=== PATIENT | male | born 2000 | race Caucasian/White ===

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

== ENCOUNTER 2021-04-17 14:05 | Outpatient (REF) | payer MEDICAID, SELFPAY ==
[2021-04-17 14:26] LABS: COVID-19 Test Negative (Negative); IDNOW Serial# 55D5AD1C
== END 2021-04-17 14:06 | disposition home or self-care (01) ==
LOC: HO.LAB 14:05
PROVIDERS: Visit Provider Internal Medicine
DX: Z20.822 Contact with and (suspected) exposure to COVID-19 (principal)
CPT/HCPCS: 36415; 87635; C9803

== ENCOUNTER 2021-11-15 10:33 | Outpatient (REF) | payer MEDICAID, SELFPAY ==
[2021-11-15 11:23] LABS: Binax Internal Control QC Valid; Binax Lot number: 9864; Binax Now Covid-19 Ag Negative (Negative)
== END 2021-11-15 10:34 | disposition home or self-care (01) ==
LOC: HO.LAB 10:33
PROVIDERS: Visit Provider Internal Medicine
DX: Z20.822 Contact with and (suspected) exposure to COVID-19 (principal)
CPT/HCPCS: 36415; C9803

== ENCOUNTER 2023-12-07 10:16 | Emergency (ER) | payer MEDICAID, SELFPAY ==
[2023-12-07 10:21] VITALS: BP 132/85; PULSE 89; RESP 18; TEMP 37.7; O2SAT 99; BMI 22.3
[2023-12-07 10:39] LABS: Basophils Absolute Auto 0.1 X10*3/uL (0.0-0.2); Basophils Percent Auto 0.3 % (0-2); Hematocrit 44.4 % (42.0-52.0); Hemoglobin 15.4 g/dl (14.0-18.0); Imm Gran Pct Auto 0.6 % (0.0-0.4); Lymphocytes Absolute Auto 1.1 X10*3/uL (1.2-4.9); Lymphocytes Percent Auto 6.2 % (20-40); MANUAL DIFF FLAG SCAN; Mean Corpuscular HGB Conc 34.7 g/dl (31.0-36.0); Mean Corpuscular Hemoglobin 31.2 pg (27.0-33.0); Mean Corpuscular Volume 89.9 fL (80.0-98.0); Mean Platelet Volume 10.2 fL (9.4-12.4); Monocytes Absolute Auto 1.8 X10*3/uL (0.1-1.2); Monocytes Percent Auto 10.1 % (2-11); Neutrophils Percent Auto 82.8 % (45-73); Platelet Count 320 X10*3/uL (160-400); Red Blood Count 4.94 X10*6/uL (4.60-5.80); SCAN SMEAR FLAG 1
[2023-12-07 10:50] LABS: IDNOW Serial# 08D9AD1C; Strep A Nucleic Acid Negative (Negative)
[2023-12-07 10:55] LABS: Alanine Aminotransferase 14 U/L (0-40); Albumin Level 4.6 g/dL (3.5-5.0); Alkaline Phosphatase 70 U/L (39-117); Anion Gap 16 (12-20); Aspartate Amino Transferase 18 U/L (5-37); Bilirubin Direct 0.3 mg/dL (0.0-0.5); Bilirubin Total 0.6 mg/dL (0.0-1.0); Blood Urea Nitrogen 17 mg/dL (9-16); Calcium 9.9 mg/dL (8.4-10.2); Carbon Dioxide 25 mmol/L (22-29); Chloride 103 mmol/L (96-108); Creatinine Clr Calc Pharmacy 105.2; Estimated Glomerular Filt Rate > 60; Glucose Random 121 mg/dL (60-115); Lipase 8 U/L (8-78); Potassium 4.2 mmol/L (3.3-5.1); Sodium 140 mmol/L (135-145); Total Protein 8.6 g/dL (6.5-8.0)
[2023-12-07 10:58] LABS: COVID-19 Test Negative (Negative); IDNOW Serial# 152EDE1D
[2023-12-07 11:09] LABS: SLIDE REVIEW VERIFIED
[2023-12-07 11:11] LABS: IDNOW Serial# 9DB6401D; Influenza A Negative (Negative); Influenza B2 Negative (Negative)
--- NOTE | 2023-12-07 13:47 | ED.GENADULT ---
HPI - General Adult General Chief complaint: Nausea/Vomiting/Diarrhea Stated complaint: Fever/Vomiting/Weakness Time Seen by Provider: 12/07/23 13:42 Source: patient Mode of arrival: ambulatory Limitations: no limitations History of Present Illness HPI narrative: patient with fever for 5 days, states that he is having shaking chills that is not getting any better. Onset (ago): day(s) Relieving factors: none Related Data Previous Rx's Medication Instructions Recorded amoxicillin 875 mg-potassium 1 tab PO BID 9 days #18 tabs 12/07/23 clavulanate 125 mg tablet ondansetron 4 mg disintegrating 4 mg PO Q8H PRN nausea and 12/07/23 tablet vomiting #20 tabs Allergies Allergy/AdvReac Type Severity Reaction Status Date / Time No Known Allergies Allergy Verified 12/07/23 10:20 Review of Systems Review of Systems: Yes all other systems are reviewed and are negative Neurologic: Denies Sensory deficit (Neuro) PMFSH Social History Social History Smoked in Last 30 Days: No Use of substances other than those prescribed or required for medical reasons: No Advance Directives: No Advance Directives Information Provided: Yes Physical Exam ED Vital Signs: Vital Signs - 24 hr 12/07/23 10:21 12/07/23 14:00 12/07/23 15:40 Temperature 99.8 F 100.8 F H 99.5 F Pulse Rate 89 79 73 Respiratory Rate 18 18 18 Blood Pressure 132/85 137/85 121/75 Pulse Oximetry 99 100 97 Oxygen Delivery Method Room Air Room Air Room Air 12/07/23 16:09 Temperature 98.3 F Pulse Rate 68 Respiratory Rate 16 Blood Pressure 117/67 Pulse Oximetry 97 Oxygen Delivery Method Room Air BMI result Body Mass Index 22.3 Const General: healthy appearing Nutritional Appearance: average body habitus Orientation/consciousness: oriented to person and patient oriented x3 Limitations: no limitations HENMT Other: pharynx with diffuse exudates and redness and cervical lymphadenopathy Head: Yes normal to inspection Ears: external ears normal General nose exam: Normal external nose present Throat: Yes posterior oropharynx normal Eyes General: appearance normal, both eyes and all related structures Neck Neck: Yes normal visual inspection Chest Chest palpation & inspection: normal inspection of the chest Resp Auscultation: clear to auscultation bilaterally Cardio Jugular venous distension: no JVD Rate: regular rate Rhythm: regular rhythm Heart sounds: S1 normal heart sound present and S2 normal heart sound present GI Inspection: Yes normal to inspection Palpation (GI): Soft to palpation, nontender and No hepatosplenomegaly present Auscultation: normal bowel sounds General: Yes no CVA tenderness Back/Spine/Pelvis Back: no CVA tenderness Skin General skin exam: no rashes or lesions noted Neuro General: oriented to person and patient oriented x3 Cranial nerves: Yes CN's II-XII intact bilaterally Motor exam (neuro): 5/5 motor strength present throughout Sensory Exam: No Sensory deficit (Neuro) Extrem General: Yes normal to inspection Psych Appearance: grossly normal Course Reevaluation(s) Reevaluation #1: strep and viral panel negative, waiting on monotest Time: 15:40 Reevaluation #2: mono negative no signs of [employer] has normal range of motion, uvula is midline will dose with ceftriaxone and DC home, no stridor no drooling Medications Administered Discontinued Medications Generic Name Dose Route Start Last Admin Trade Name Zandra PRN Reason Stop Dose Admin Dexamethasone Sodium Phosphate 10 mg 12/07/23 13:49 12/07/23 14:02 Dexamethasone Sod Phosphate 10 Mg/Ml Vial IVPUSH 12/07/23 13:50 10 mg ONCE ONE Administration Sodium Chloride 500 mls @ 999 mls/hr 12/07/23 14:00 12/07/23 15:39 Ns IV 12/07/23 14:30 Infused .Q31M [facility] Infusion Ketorolac Tromethamine 30 mg 12/07/23 13:49 12/07/23 14:02 Ketorolac Tromethamine 30 Mg/Ml Vial IVPUSH 12/07/23 13:50 30 mg ONCE ONE Administration Medical Decision Making Differential Diagnosis Differential Diagnoses: The differential diagnosis associated with the presentation includes (exudative pharyngitis, mono, covid, influenza, rsv, leukocytoisis were all considered) Lab Data MDM Lab Attestation statement: I reviewed the patient's lab results. (leukocytosis noted) 12/07/23 10:31 12/07/23 10:31 Labs: Lab Results 12/07/23 12/07/23 Range/Units 10:31 13:54 WBC 18.0 H (4.8-10.8) X10*3/uL RBC 4.94 (4.60-5.80) X10*6/uL Hgb 15.4 (14.0-18.0) g/dl Hct 44.4 (42.0-52.0) % MCV 89.9 (80.0-98.0) fL MCH 31.2 (27.0-33.0) pg MCHC 34.7 (31.0-36.0) g/dl RDW 13.0 (11.0-16.0) % Plt Count 320 (160-400) X10*3/uL MPV 10.2 (9.4-12.4) fL Immature Gran % (Auto) 0.6 H (0.0-0.4) % Neut % (Auto) 82.8 H (45-73) % Lymph % (Auto) 6.2 L (20-40) % [place] % (Auto) 10.1 (2-11) % Eos % (Auto) 0.0 (0-4) % Baso % (Auto) 0.3 (0-2) % Lymph # (Auto) 1.1 L (1.2-4.9) X10*3/uL [place] # (Auto) 1.8 H (0.1-1.2) X10*3/uL Eos # (Auto) 0.0 (0.0-0.4) X10*3/uL Baso # (Auto) 0.1 (0.0-0.2) X10*3/uL Abs Immat Gran (auto) 0.10 H (0.00-0.03) X10*3/uL Absolute Neuts (auto) 15.0 H (2.0-8.3) x10*3/uL Absolute Nucleated RBC 0.000 (0.0-0.012) X10*3/uL Nucleated RBC % (auto) 0.0 (0.0-0.2) /100WBC Smear Tech's Comments VERIFIED Sodium 140 (135-145) mmol/L Potassium 4.2 (3.3-5.1) mmol/L Chloride 103 (96-108) mmol/L Carbon Dioxide 25 (22-29) mmol/L Anion Gap 16 (12-20) BUN 17 H (9-16) mg/dL Creatinine 1.13 (0.5-1.4) mg/dL Estim Creat Clear Calc 105.2 Estimated GFR > 60 Random Glucose 121 H (60-115) mg/dL Calcium 9.9 (8.4-10.2) mg/dL Total Bilirubin 0.6 (0.0-1.0) mg/dL Direct Bilirubin 0.3 (0.0-0.5) mg/dL AST 18 (5-37) U/L ALT 14 (0-40) U/L Alkaline Phosphatase 70 (39-117) U/L Total Protein 8.6 H (6.5-8.0) g/dL Albumin 4.6 (3.5-5.0) g/dL Lipase 8 (8-78) U/L COVID-19 (TIFFANY) Negative (Negative) COVID-19 Clin Com See Note Monoscreen Negative (Negative) Influenza Type A (KATIE) Negative (Negative) Influenza Type B (KATIE) Negative (Negative) Influenza A & B Note See Note S. pyogenes GrpA KATIE Negative (Negative) Tests considered The following testing was considered but not selected: CXR: patient with diffuse tonsillar exudate did not obtain xray Discharge Plan Discharge Clinical Impression: Pharyngitis Qualifiers: Pharyngitis/tonsillitis etiology: unspecified etiology Qualified Code(s): J02.9 - Acute pharyngitis, unspecified Patient Disposition: Home, Self-Care Instructions: Pharyngitis (ED) Additional Instructions: start antibiotic in the morning you were given IV dose in the ED. return for worsening swelling, pain, unable to swallow, difficulty moving neck or any other concerns. you must finish the entire course of antibiotics. Prescriptions: New ondansetron 4 mg tablet,disintegrating 4 mg PO Q8H PRN (Reason: nausea and vomiting) Qty: 20 0RF amoxicillin-pot clavulanate 875-125 mg tablet 1 tab PO BID 9 Days Qty: 18 0RF Stand Alone Forms: Work/School Release
[2023-12-07 14:00] VITALS: BP 137/85; PULSE 79; RESP 18; TEMP 38.2; O2SAT 100
[2023-12-07] MEDS: 0.9 % Sodium Chloride 500 ML 999 ML IV (14:02)
[2023-12-07] MEDS: dexAMETHasone sod phosphate 10 MG/ML VIAL IVPUSH (14:02)
[2023-12-07] MEDS: Ketorolac Tromethamine 30 MG/ML VIAL IVPUSH (14:02)
[2023-12-07 15:40] VITALS: BP 121/75; PULSE 73; RESP 18; TEMP 37.5; O2SAT 97
[2023-12-07 16:09] VITALS: BP 117/67; PULSE 68; RESP 16; TEMP 36.8; O2SAT 97
[2023-12-07 16:38] LABS: Monotest Negative (Negative)
[2023-12-07] MEDS: cefTRIAXone sodium 1 GM in 0.9 % Sodium Chloride 50 ML IV (17:17)
== END 2023-12-07 18:09 | disposition home or self-care (01) ==
PROVIDERS: Emergency Medicine; Emergency Provider Emergency Medicine
DX: J02.9 Acute pharyngitis, unspecified (principal); Z11.52 Encounter for screening for COVID-19
CPT/HCPCS: 36415; 80048; 80076; 83690; 85025; 86308; 87502; 87635; 87651; 96361; 96365; 96375; 99284; J0696; J1100; J1885

== ENCOUNTER 2023-12-10 21:18 | Emergency (ER) | payer MEDICAID, SELFPAY ==
--- NOTE | 2023-12-10 | ECG_ITS ---
Test Reason : CHEST PAIN Blood Pressure : / mmHG Vent. Rate : 074 BPM Atrial Rate : 074 BPM P-R Int : 140 ms QRS Dur : 084 ms QT Int : 376 ms P-R-T Axes : 025 -10 027 degrees QTc Int : 417 ms Normal sinus rhythm Possible Left atrial enlargement Borderline ECG No previous ECGs available Referred By: Generic ED Physician Electronically Signed By:Holland Tracy
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
[2023-12-10 21:29] VITALS: BP 137/86; PULSE 79; RESP 18; TEMP 36.8; O2SAT 99; BMI 20.9
[2023-12-10 22:14] LABS: COVID-19 Test Negative (Negative); IDNOW Serial# 9DB6401D
[2023-12-11 00:45] VITALS: BP 127/85; PULSE 85; RESP 16; TEMP 36.9; O2SAT 98
[2023-12-11 01:12] LABS: IDNOW Serial# 08D9AD1C; Strep A Nucleic Acid Negative (Negative)
[2023-12-11 01:20] LABS: Basophils Absolute Auto 0.1 X10*3/uL (0.0-0.2); Basophils Percent Auto 0.4 % (0-2); Eosinophils Absolute Auto 0.1 X10*3/uL (0.0-0.4); Eosinophils Percent Auto 0.7 % (0-4); Hematocrit 42.1 % (42.0-52.0); Hemoglobin 14.6 g/dl (14.0-18.0); Imm Gran Abs Auto 0.06 X10*3/uL (0.00-0.03); Imm Gran Pct Auto 0.5 % (0.0-0.4); Lymphocytes Absolute Auto 2.5 X10*3/uL (1.2-4.9); MANUAL DIFF FLAG SCAN; Mean Corpuscular HGB Conc 34.7 g/dl (31.0-36.0); Mean Corpuscular Hemoglobin 30.5 pg (27.0-33.0); Mean Corpuscular Volume 88.1 fL (80.0-98.0); Mean Platelet Volume 9.8 fL (9.4-12.4); Monocytes Absolute Auto 1.3 X10*3/uL (0.1-1.2); Monocytes Percent Auto 10.9 % (2-11); Neutrophils Absolute Auto 7.5 x10*3/uL (2.0-8.3); Neutrophils Percent Auto 65.5 % (45-73); Platelet Count 365 X10*3/uL (160-400); Red Blood Count 4.78 X10*6/uL (4.60-5.80); SCAN SMEAR FLAG 1; White Blood Count 11.5 X10*3/uL (4.8-10.8)
[2023-12-11 01:20] LABS: IDNOW Serial# 152EDE1D; Influenza A Negative (Negative); Influenza B2 Negative (Negative)
[2023-12-11 01:30] LABS: Monotest Negative (Negative)
[2023-12-11 01:32] LABS: Anion Gap 14 (12-20); Blood Urea Nitrogen 17 mg/dL (9-16); Calcium 9.2 mg/dL (8.4-10.2); Carbon Dioxide 25 mmol/L (22-29); Chloride 104 mmol/L (96-108); Creatinine Clr Calc Pharmacy 129.6; Estimated Glomerular Filt Rate > 60; Glucose Random 106 mg/dL (60-115); Potassium 3.4 mmol/L (3.3-5.1); Sodium 140 mmol/L (135-145)
[2023-12-11 01:44] LABS: SLIDE REVIEW VERIFIED
--- NOTE | 2023-12-11 01:52 | ED.GENADULT ---
HPI - General Adult General Chief complaint: Upper Respiratory Symptoms Stated complaint: chest and rib pain, sore throat seen here 12/06 Time Seen by Provider: 12/11/23 00:34 Source: patient, RN notes reviewed and old records reviewed Mode of arrival: ambulatory Limitations: no limitations History of Present Illness HPI narrative: 23-year-old male presents for evaluation of continued sore throat, poor appetite and chest pain. Patient was seen here a few days ago and diagnosed with pharyngitis. He was discharged with Augmentin b.i.d. x9 days He has so far been taking for 3 full days and has not missed any doses He reports since starting he has had upset stomach He continues to have sore throat but his fevers have improved No nausea or vomiting but just feels like he has a poor appetite Endorses shortness of breath and chest pain with breathing No other complaints or concerns at this time Related Data Previous Rx's Medication Instructions Recorded amoxicillin 875 mg-potassium 1 tab PO BID 9 days #18 tabs 12/07/23 clavulanate 125 mg tablet ondansetron 4 mg disintegrating 4 mg PO Q8H PRN nausea and 12/07/23 tablet vomiting #20 tabs clindamycin HCl 300 mg capsule 300 mg PO TID #21 caps 12/11/23 Allergies Allergy/AdvReac Type Severity Reaction Status Date / Time No Known Allergies Allergy Verified 12/07/23 10:20 Review of Systems Constitutional: Constitutional: Denies body ache(s), Denies chills, Denies fever(s) and Reports poor appetite ENT: Reports sore throat Cardiovascular: Cardiovascular: Reports chest pain, Reports chest pain with activity and Reports dyspnea Respiratory: Respiratory: Reports cough and Reports dyspnea Gastrointestinal: Gastrointestinal: Denies abdominal pain, Reports nausea and Denies vomiting Musculoskeletal: Musculoskeletal: Denies back pain Integumentary/Breasts: Skin/Breast: Denies rash PMFSH Social History Social History Advance Directives: No Advance Directives Information Provided: Yes Physical Exam ED Vital Signs: Vital Signs - 24 hr 12/10/23 21:29 12/11/23 00:45 Temperature 98.2 F 98.4 F Pulse Rate 79 85 Respiratory Rate 18 16 Blood Pressure 137/86 127/85 Pulse Oximetry 99 98 Oxygen Delivery Method Room Air Room Air BMI result Body Mass Index 20.9 Const General: healthy appearing, comfortable, no acute distress, alert and awake Nutritional Appearance: well nourished Orientation/consciousness: patient oriented x3 HENMT Other: Patient has bilateral tonsillar hypertrophy with whitish exudates. No evidence of peritonsillar abscess. Airway is widely patent. No Bairon's angina Head: Yes normocephalic and Yes atraumatic Eyes Eyelids: Yes eyelids normal Conjunctivae: conjunctivae normal Sclerae: sclerae normal Corneas: corneas normal Pupils: Equal, round and reactive pupils present EOM: EOMs intact bilaterally Neck Neck: Yes full ROM Resp Effort & Inspection: normal respiratory effort, able to speak in complete sentences and not labored GI Inspection: No distended Palpation (GI): Soft to palpation, not firm, nontender, no guarding and not rigid Neuro General: patient oriented x3 Cranial nerves: Yes Equal, round and reactive pupils present and Yes Bilaterally intact EOM present Cognition (Neuro): normal cognition Extrem Other: Moving all extremities well without any obvious deformities Medical Decision Making Medical Decision Making [facility] Narrative: 23-year-old male presents for evaluation of continued sore throat, upper respiratory symptoms. He still has exudative pharyngitis with no evidence of abscess. He is strep negative, mono negative. He is negative for influenza as well as COVID-19. Given that his symptoms persist any appears to have GI upset related to Augmentin will change his antibiotic to clindamycin and give him a dose of dexamethasone. He is stable for discharge to follow-up with his PCP Differential Diagnosis Differential Diagnoses: The differential diagnosis associated with the presentation includes Pharyngitis Upper respiratory infection Strep pharyngitis Mononucleosis Influenza Lab Data [facility] Lab Attestation statement: I reviewed the patient's lab results. Mild leukocytosis to 11.5 K, improved from a few days ago. No other significant lab abnormalities 12/11/23 01:16 12/11/23 01:16 Labs: Lab Results 12/10/23 12/11/23 12/11/23 Range/Units 21:38 00:59 01:16 WBC 11.5 H (4.8-10.8) X10*3/uL RBC 4.78 (4.60-5.80) X10*6/uL Hgb 14.6 (14.0-18.0) g/dl Hct 42.1 (42.0-52.0) % MCV 88.1 (80.0-98.0) fL MCH 30.5 (27.0-33.0) pg MCHC 34.7 (31.0-36.0) g/dl RDW 13.0 (11.0-16.0) % Plt Count 365 (160-400) X10*3/uL MPV 9.8 (9.4-12.4) fL Immature Gran % (Auto) 0.5 H (0.0-0.4) % Neut % (Auto) 65.5 (45-73) % Lymph % (Auto) 22.0 (20-40) % [place] % (Auto) 10.9 (2-11) % Eos % (Auto) 0.7 (0-4) % Baso % (Auto) 0.4 (0-2) % Lymph # (Auto) 2.5 (1.2-4.9) X10*3/uL [place] # (Auto) 1.3 H (0.1-1.2) X10*3/uL Eos # (Auto) 0.1 (0.0-0.4) X10*3/uL Baso # (Auto) 0.1 (0.0-0.2) X10*3/uL Abs Immat Gran (auto) 0.06 H (0.00-0.03) X10*3/uL Absolute Neuts (auto) 7.5 (2.0-8.3) x10*3/uL Absolute Nucleated RBC 0.000 (0.0-0.012) X10*3/uL Nucleated RBC % (auto) 0.0 (0.0-0.2) /100WBC Smear Tech's Comments VERIFIED Sodium 140 (135-145) mmol/L Potassium 3.4 (3.3-5.1) mmol/L Chloride 104 (96-108) mmol/L Carbon Dioxide 25 (22-29) mmol/L Anion Gap 14 (12-20) BUN 17 H (9-16) mg/dL Creatinine 0.86 (0.5-1.4) mg/dL Estim Creat Clear Calc 129.6 Estimated GFR > 60 Random Glucose 106 (60-115) mg/dL Calcium 9.2 D (8.4-10.2) mg/dL COVID-19 (TIFFANY) Negative (Negative) COVID-19 Clin Com See Note Monoscreen Negative (Negative) Influenza Type A (KATIE) Negative (Negative) Influenza Type B (KATIE) Negative (Negative) Influenza A & B Note See Note S. pyogenes GrpA KATIE Negative (Negative) Discharge Plan Discharge Clinical Impression: Pharyngitis Patient Disposition: Home, Self-Care Instructions: Pharyngitis (ED) Additional Instructions: Your workup in the ER was reassuring. You tested negative for the flu, COVID-19, strep throat and mononucleosis. Stop taking the Augmentin Take clindamycin instead an your given a dose of dexamethasone which should help with the swelling and discomfort You may use saltwater gargles, Motrin and Tylenol for pain Follow-up with your primary doctor Prescriptions: New clindamycin HCl 300 mg capsule 300 mg PO TID Qty: 21 0RF No Action ondansetron 4 mg tablet,disintegrating 4 mg PO Q8H PRN (Reason: nausea and vomiting) Qty: 20 0RF amoxicillin-pot clavulanate 875-125 mg tablet 1 tab PO BID 9 Days Qty: 18 0RF
[2023-12-11] MEDS: Clindamycin HCL 300 MG CAPSULE PO (02:06)
[2023-12-11] MEDS: dexAMETHasone 2 MG TABLET 10 MG PO (02:06)
== END 2023-12-11 02:20 | disposition home or self-care (01) ==
PROVIDERS: Physician Assistant; Emergency Provider Internal Medicine
DX: J02.9 Acute pharyngitis, unspecified (principal); Z11.52 Encounter for screening for COVID-19; R05.9 Cough, unspecified
CPT/HCPCS: 36415; 71046; 80048; 85025; 86308; 87502; 87635; 87651; 93005; 99284; 99285; J8540

== ENCOUNTER → 2023-12-10 21:26 | Outpatient (BNV) | payer MEDICAID, SELFPAY | PROVIDERS: Emergency Provider Internal Medicine; Visit Provider Internal Medicine Cardiovascular Disease | DX: R07.9 Chest pain, unspecified (principal) | CPT/HCPCS: 93010 ==

== ENCOUNTER 2025-03-05 23:59 | Emergency (ER) | payer MEDICAID, SELFPAY ==
--- NOTE | 2025-03-06 00:16 | MHC.EDTECH ---
Patient BIBA,changed into hospital attire,vitals taken,patient is calm and cooperative,RN at bedside,call slater within reach
[2025-03-06 00:18] VITALS: BP 129/80; BP 141/85; PULSE 94; PULSE 98; RESP 18; TEMP 36.9; O2SAT 97; BMI 22.2
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
[2025-03-06 02:42] VITALS: BP 132/88; PULSE 70; RESP 18; TEMP 36.9; O2SAT 98
== END 2025-03-06 02:42 | disposition home or self-care (01) ==
PROVIDERS: Emergency Provider Internal Medicine
DX: S00.81XA Abrasion of other part of head, initial encounter (principal); S40.812A Abrasion of left upper arm, initial encounter; S40.811A Abrasion of right upper arm, initial encounter; Y04.2XXA Assault by strike against or bumped into by another person, initial encounter; Y93.9 Activity, unspecified; Y92.9 Unspecified place or not applicable; Y99.8 Other external cause status
CPT/HCPCS: 99282; 99284